=== PATIENT | male | born 1990 | race Two or more races ===

== ENCOUNTER 2024-03-07 11:30 | Emergency (ER) | payer SELFPAY ==
[~2024-03-07] VITALS: Ht 170.2 cm; Wt 61.2 kg
[2024-03-07] MEDS ORDERED: IBUP-1957 PO (13:52)
[2024-03-07 15:18] VITALS: BP 138/78; TEMP 98.2; O2SAT 96
== END 2024-03-07 13:57 | disposition home or self-care (01) ==
LOC: ER 11:51
DX: S09.8XXA Other specified injuries of head, initial encounter (principal); R07.89 Other chest pain; M54.2 Cervicalgia; V43.52XA Car driver injured in collision with other type car in traffic accident, initial encounter; Y93.89 Activity, other specified; Y92.488 Other paved roadways as the place of occurrence of the external cause; Y99.8 Other external cause status
CPT/HCPCS: 70450-TC; 71045-TC